=== PATIENT | male | born 1965 | race Caucasian/White ===

== ENCOUNTER 2017-02-10 13:23 | Emergency (ER) | payer OTHER ==
--- NOTE | 2017-02-10 14:00 | ED Physician Documentation ---
PD HPI LOWER EXT INJURY - Stated complaint Stated Complaint: R BIG TOE PX - Chief complaint Chief Complaint: Ext Problem - History obtained from History obtained from: Patient - History of Present Illness PD HPI LOW EXT INJURY LOCATION: Right, Toe (base of great toe) Type of injury: No: Fall, Twist Timing - onset: Today Timing - details: Abrupt onset, Constant Similar symptoms before: Diagnosis (gout iwth episodes in same area. He had been on Allopurinol but ran out a month ago. [place] is traveling [place] and [place] and [facility]D wouldn't give him Rx. Has had gout episodes in the past.) Recently seen: Not recently seen Review of Systems Constitutional: denies: Fever, Chills Throat: denies: Sore throat Cardiac: denies: Chest pain / pressure Respiratory: denies: Cough GI: denies: Vomiting, Diarrhea PD PAST MEDICAL HISTORY - Past Medical History Cardiovascular: None Respiratory: None Neuro: None Endocrine/Autoimmune: None Musculoskeletal: Gout - Past Surgical History Past Surgical History: Yes - Present Medications Home Medications: Ambulatory Orders Medication Instructions Recorded Confirmed Allopurinol 02/10/17 Allopurinol 100 mg PO DAILY #30 tablet 02/10/17 Colchicine 02/10/17 Colchicine 0.6 mg PO TID PRN #10 tablet 02/10/17 Hydrocodone/Acetaminophen [[place] 1 each PO Q6H PRN #20 tablet 02/10/17 5-325 Tablet] Naproxen [Naprosyn] 500 mg PO BID #20 tablet 02/10/17 Zolpidem Tartrate [Ambien] 10 mg PO PRN PRN 02/10/17 02/10/17 - Allergies Allergies/Adverse Reactions: Allergies Allergy/AdvReac Type Severity Reaction Status Date / Time morphine Allergy Anaphylaxis Verified 02/10/17 13:33 - Social History Does the pt smoke?: No Smoking Status: Never smoker Does the pt drink ETOH?: No Does the pt have substance abuse?: No - Immunizations Immunizations are current?: Yes PD ED PE NORMAL - Vitals Vital signs reviewed: Yes - General General: Alert and oriented X 3, Well developed/nourished - Derm Derm: Normal color, Warm and dry, Other (right great toe with redness and marked tenderness dorsal and medial MTP joint. Toe itself without apparent injury. Redness and some swelling. No skin sores. ) - Neuro Neuro: No motor deficit, No sensory deficit Results - Vitals Vitals: Vital Signs - 24 hr 02/10/17 02/10/17 13:31 14:53 Temperature 36.0 C L 36.3 C L Heart Rate 93 79 Respiratory 18 18 Rate Blood Pressure 152/96 H 158/96 H O2 Saturation 99 100 Oxygen O2 Source Room air PD MEDICAL DECISION MAKING - ED course Complexity details: considered differential (appears c/w gout and history of same. ), d/w patient Departure - Departure Disposition: 01 Home, Self Care Clinical Impression: Pain of great toe Qualifiers: Laterality: right Qualified Code(s): M79.674 - Pain in right toe(s) Acute gout Qualifiers: Gout site: toe Gout etiology: idiopathic Laterality: right Qualified Code(s): M10.071 - Idiopathic gout, right ankle and foot Condition: Stable Record reviewed to determine appropriate education?: Yes Instructions: ED Arthritis Gout Prescriptions: Allopurinol 100 mg PO DAILY #30 tablet Colchicine 0.6 mg PO TID PRN #10 tablet PRN Reason: Pain Naproxen [Naprosyn] 500 mg PO BID #20 tablet Hydrocodone/Acetaminophen [[place] 5-325 Tablet] 1 each PO Q6H PRN #20 tablet PRN Reason: Pain Comments: Be well hydrated. Naproxen twice daily for the next week. Colchicine three times daily for next 2-3 days as needed for gout flare. Add Tylenol and/or hydrocodone for pains as needed. When improved, can resume usual Allopurinol daily. Discharge Date/Time: 02/10/17 14:53
[2017-02-10] MEDS ORDERED: NAPROXEN 250 MG TABLET PO STA (14:17)
[2017-02-10] MEDS ORDERED: DEXAMETHASONE 10 MG/ML VIAL PO STA (14:17)
[2017-02-10] MEDS ORDERED: ACETAMINOPHEN 325 MG TABLET PO STA (14:17)
[2017-02-10] MEDS ORDERED: COLCHICINE 0.6 MG TABLET PO STA (14:17)
[2017-02-10] MEDS ORDERED: NAPROXEN 250 MG TABLET PO ONE (14:41)
[2017-02-10] MEDS ORDERED: CHERRY SYRUP 10 ML UDC PO ONE (14:41)
[2017-02-10] MEDS ORDERED: DEXAMETHASONE 10 MG/ML VIAL ONE (14:42)
[2017-02-10] MEDS ORDERED: ACETAMINOPHEN 325 MG TABLET PO ONE (14:42)
[2017-02-10 14:53] VITALS: BP 158/96
== END 2017-02-10 14:53 | disposition home or self-care (01) ==
LOC: ED 13:23
DX: M79.674 Pain in right toe(s) (principal); M10.071 Idiopathic gout, right ankle and foot
CPT/HCPCS: 99282; 99283; A9270